=== PATIENT | female | born 1965 | race Caucasian/White ===

== ENCOUNTER → 2021-05-07 | Outpatient (CLI) | payer OTHER, BC ==
[~2021-05-07] MED LIST: COLACE100 MG PO; HYDROCODON-ACE1 EAC7 PO; IBUPROFEN 200200 M1 PO; ONDANSETRON ODT4 MG SUBLING; ULTRAM 50MG TAB50 MG PO; VITAMIN K100 MCG PO; ZOMIG ZMT5 MG PO; [UNRECOGNIZED DRUG - OTHER] PO
== END ==
LOC: MRI 08:39
PROVIDERS: ATTEND Podiatrist Foot & Ankle Surgery
DX: S92.812A Other fracture of left foot, initial encounter for closed fracture (principal); X58.XXXA Exposure to other specified factors, initial encounter; Y93.89 Activity, other specified; Y92.89 Other specified places as the place of occurrence of the external cause; Y99.8 Other external cause status

== ENCOUNTER → 2021-05-30 | Outpatient (CLI) | payer OTHER, BC ==
[~2021-05-30] VITALS: Ht 162.6 cm; Wt 61.2 kg
[~2021-05-30] MED LIST changes: +ALEVE220 MG PO; +ALLEGRA-D 24 H1 EACH PO; +APAP650 PO; +PEPCID20 MG PO
[2021-05-30 10:25] VITALS: BP 112/60
--- NOTE | 2021-05-30 11:12 | NUR ---
[facility] Assessment: 1. History of Osteoarthritis: JOINTS DDD UPPER BACK/NECK History of Rheumatoid Arthritis: DENIES (FAMILY HX) 2. Height: 5 ft. 4 in. 162.6 cm. Weight: 135.0 lb. oz. 61.236 kg. Patient's BMI: 23.2 3. Vital Signs: BP: 112/60 Pulse: 85 Resp: 14 Temp: 02 Sat: 100 ECG Mon: 4. Pain Intensity: 6 TO 10 5. Fall Risk: Dizziness: N Needs help standing or walking: N Fallen in the last 3 months: N Fall risk comments: 6. Patient on Blood Thinner: None 7. History of Hypertension: N 8. Opioid Therapy greater than 6 weeks: N Opiate Contract Signed: 9. Risk Assessment Tool Provided: LOW-1 10. Functional Assessment Tool: 11. Recreational Drug Use: Never Drug Type: Tobacco Use: Never Smoker Tobacco Type: Amount or Packs/day: How Many Years: Alcohol Use: No Frequency: Quant:
== END ==
LOC: PAIN 08:45
PROVIDERS: ATTEND Anesthesiology Pain Medicine
DX: G89.29 Other chronic pain (principal); M79.672 Pain in left foot; M25.552 Pain in left hip; Z88.0 Allergy status to penicillin; Z88.8 Allergy status to other drugs, medicaments and biological substances